=== PATIENT | female | born 1935 | race Caucasian/White ===

== ENCOUNTER 2020-10-28 12:21 | Outpatient (REF) | payer MEDICARE, SELFPAY ==
[2020-10-28 13:39] LABS: B Type Natriuretic Peptide 18 pg/mL (<100)
[2020-10-28 13:43] LABS: Alanine Aminotransferase 16 U/L (0-31); Albumin Level 4.1 g/dL (3.5-5.0); Alkaline Phosphatase 123 U/L (39-117); Anion Gap 13 (12-20); Aspartate Amino Transferase 36 U/L (5-31); Bilirubin Total 0.8 mg/dL (0.0-1.0); Blood Urea Nitrogen 17 mg/dL (9-16); Calcium 9.1 mg/dL (8.4-10.2); Carbon Dioxide 26 mmol/L (22-29); Chloride 104 mmol/L (96-108); Cholesterol 178 mg/dL; Estimated Glomerular Filt Rate 58; Glucose Random 155 mg/dL (60-115); HDL Cholesterol 65 mg/dL; LDL Cholesterol Calculated 94 mg/dl; Potassium 4.7 mmol/l (3.3-5.1); Sodium 138 mmol/L (135-145); Total Protein 7.7 g/dL (6.5-8.0); Triglycerides 99 mg/dL
== END 2020-10-28 12:22 | disposition home or self-care (01) ==
LOC: HO.LAB 12:21
PROVIDERS: PCP Internal Medicine; Visit Provider Internal Medicine
DX: I50.9 Heart failure, unspecified (principal); E11.9 Type 2 diabetes mellitus without complications
CPT/HCPCS: 80053; 80061; 83880

== ENCOUNTER → 2021-03-17 13:04 | Outpatient (BNVA) | payer MEDICARE, SELFPAY | PROVIDERS: PCP Internal Medicine; Visit Provider Internal Medicine | DX: I10 Essential (primary) hypertension (principal); R60.0 Localized edema; E11.8 Type 2 diabetes mellitus with unspecified complications; Z87.891 Personal history of nicotine dependence; Z79.899 Other long term (current) drug therapy | CPT/HCPCS: 93005; 99212 ==

== ENCOUNTER 2021-06-29 09:44 | Outpatient (REF) | payer MEDICARE, SELFPAY ==
[2021-06-29 13:44] LABS: Alanine Aminotransferase 14 U/L (0-31); Albumin Level 4.2 g/dL (3.5-5.0); Alkaline Phosphatase 132 U/L (39-117); Anion Gap 16 (12-20); Aspartate Amino Transferase 28 U/L (5-31); Bilirubin Total 0.9 mg/dL (0.0-1.0); Blood Urea Nitrogen 15 mg/dL (9-16); Calcium 9.3 mg/dL (8.4-10.2); Carbon Dioxide 24 mmol/L (22-29); Chloride 108 mmol/L (96-108); Cholesterol 183 mg/dL; Estimated Glomerular Filt Rate > 60; Glucose Fasting 122 mg/dL (60-99); HDL Cholesterol 64 mg/dL; LDL Cholesterol Calculated 99 mg/dl; Potassium 4.4 mmol/L (3.3-5.1); Sodium 144 mmol/L (135-145); Total Protein 7.4 g/dL (6.5-8.0); Triglycerides 104 mg/dL
== END 2021-06-29 09:45 | disposition home or self-care (01) ==
LOC: HO.LAB 09:44
PROVIDERS: PCP Internal Medicine; Visit Provider Internal Medicine
DX: E11.9 Type 2 diabetes mellitus without complications (principal); E78.5 Hyperlipidemia, unspecified
CPT/HCPCS: 36415; 80053; 80061

== ENCOUNTER → 2021-09-29 12:58 | Outpatient (BNVA) | payer MEDICARE, SELFPAY | PROVIDERS: PCP Internal Medicine; Referring Provider Internal Medicine; Visit Provider Internal Medicine | DX: I10 Essential (primary) hypertension (principal); R60.0 Localized edema; E11.8 Type 2 diabetes mellitus with unspecified complications | CPT/HCPCS: 99212 ==

== ENCOUNTER 2022-03-26 12:28 | Outpatient (REF) | payer OTHER, SELFPAY ==
[2022-03-26 13:27] LABS: Alanine Aminotransferase 15 U/L (0-31); Alkaline Phosphatase 165 U/L (39-117); Anion Gap 13 (12-20); Aspartate Amino Transferase 29 U/L (5-31); Bilirubin Total 1.2 mg/dL (0.0-1.0); Blood Urea Nitrogen 12 mg/dL (9-16); Calcium 10.1 mg/dL (8.4-10.2); Carbon Dioxide 26 mmol/L (22-29); Chloride 105 mmol/L (96-108); Cholesterol 183 mg/dL; Estimated Glomerular Filt Rate > 60; Glucose Fasting 144 mg/dL (60-99); HDL Cholesterol 64 mg/dL; LDL Cholesterol Calculated 103 mg/dl; Potassium 5.3 mmol/L (3.3-5.1); Sodium 139 mmol/L (135-145); Total Protein 7.5 g/dL (6.5-8.0); Triglycerides 80 mg/dL
== END 2022-03-26 12:29 | disposition home or self-care (01) ==
LOC: HO.LAB 12:28
PROVIDERS: PCP Internal Medicine; Visit Provider Internal Medicine
DX: E11.8 Type 2 diabetes mellitus with unspecified complications (principal); E78.5 Hyperlipidemia, unspecified
CPT/HCPCS: 36415; 80053; 80061

== ENCOUNTER 2022-03-29 14:56 | Outpatient (REF) | payer OTHER, SELFPAY ==
[2022-03-29 15:55] LABS: Creatinine Urine 19.95 mg/dL; Microalbumin Urine < 5.0 mg/L
== END 2022-03-29 14:57 | disposition home or self-care (01) ==
LOC: HO.LNP 14:56
PROVIDERS: Visit Provider Internal Medicine
DX: E11.8 Type 2 diabetes mellitus with unspecified complications (principal)
CPT/HCPCS: 82043

== ENCOUNTER → 2022-05-19 14:42 | Outpatient (BNVA) | payer OTHER, SELFPAY | PROVIDERS: PCP Internal Medicine; Referring Provider Internal Medicine; Visit Provider Internal Medicine | DX: I10 Essential (primary) hypertension (principal); E87.5 Hyperkalemia; E11.8 Type 2 diabetes mellitus with unspecified complications; R60.0 Localized edema; Z79.84 Long term (current) use of oral hypoglycemic drugs; Z79.899 Other long term (current) drug therapy | CPT/HCPCS: 93005; 99212 ==

== ENCOUNTER 2022-07-22 14:00 | Outpatient (RCR) | payer OTHER, SELFPAY ==
--- NOTE | 2022-06-24 17:31 | MHC.PT.EP ---
[facility] [place] Office [place] Office [place] Office [address] [phone] F: [phone] F: [phone] F: [phone] F: [phone] Physical Therapy Plan of Care Date of Evaluation: Date of Surgery: N/A Diagnosis: left knee pain (RC) Assessment: pt is a 87 y/o female presenting to physical therapy w/ referral for left knee pain. Impairments include pain, decreased range of motion, decreased strength, impaired functional mobility, impaired postural awareness. pt is a fair candidate for skilled PT due to age, potential remediation of impairments, typical disease/condition progression and prognosis, comorbidities, and motivation. pt would benefit from tailored strengthening and stretching exercise program, functional training, postural re-training, neuromuscular re-education, modalities as needed for pain, equipment safety demonstration. Frequency and Duration: The patient will be seen 1x/wk for 5 wks Short Term Goals: pt will be I w/ HEP to promote self-management of condition. pt will improve L knee extension by 5 degrees to promote improved heel strike at IC for ambulation Halfway Goals: pt will perform sit to stand transfer on first attempt w/ minimal UE assist. pt will ambulate 3 x 60' to promote return to household ambulation. Treatment Plan: Modalities to reduce pain, spasms and effusion. Manual therapy to restore motion and function. Therapeutic exercise to improve strength and flexibility. Neuromuscular re-education for posture and balance. Therapeutic activities to return to functional activities of daily living. Electronically signed by: Tracey Dykes PT, DPT Please sign and return to therapist. Thank you for your referral.
--- NOTE | 2022-08-09 14:50 | MHC.PT.DC ---
[facility] [place] Office [place] Office [place] Office [address] Sruthi Hopper [address] [phone] F: [phone] F: [phone] F: [phone] F: [phone] Physical Therapy Discharge Report Diagnosis: left knee pain (RC) Date of Surgery: N/A Date of Evaluation: 06/24/22 Date of Discharge: 08/09/22 Treatments to Date: 4 Cancellations to Date: 2 No Shows to Date: 0 Discharge Status: Recommend MD Follow-up Discharge Summary: The patient overall had fair-poor tolerance of physical therapy intervention. Her knee arthritis is advanced and not likely to improve with non-operative management. I cannot recommend further PT intervention for this patient at this time. She is discharged from this physical therapy plan of care with recommendation to follow-up with a provider and discuss alternative pain management options. Electronically signed by: Tracey Dykes PT, DPT Please sign and return to therapist. Thank you for your referral.
== END 2022-08-09 14:50 | disposition home or self-care (01) ==
LOC: HO.PT 14:00
PROVIDERS: PCP Internal Medicine; Visit Provider Internal Medicine
DX: M25.562 Pain in left knee (principal)
CPT/HCPCS: 97110; 97163

== ENCOUNTER 2022-08-17 11:52 | Outpatient (REF) | payer OTHER, SELFPAY ==
[2022-08-17 13:06] LABS: Alanine Aminotransferase 17 U/L (0-31); Albumin Level 4.2 g/dL (3.5-5.0); Alkaline Phosphatase 133 U/L (39-117); Anion Gap 14 (12-20); Aspartate Amino Transferase 27 U/L (5-31); Bilirubin Total 1.1 mg/dL (0.0-1.0); Blood Urea Nitrogen 16 mg/dL (9-16); Calcium 9.6 mg/dL (8.4-10.2); Carbon Dioxide 25 mmol/L (22-29); Chloride 104 mmol/L (96-108); Cholesterol 194 mg/dL; Estimated Glomerular Filt Rate > 60; Glucose Fasting 134 mg/dL (60-99); HDL Cholesterol 68 mg/dL; LDL Cholesterol Calculated 108 mg/dl; Sodium 138 mmol/L (135-145); Total Protein 7.1 g/dL (6.5-8.0); Triglycerides 92 mg/dL
== END 2022-08-17 11:53 | disposition home or self-care (01) ==
LOC: HO.LAB 11:52
PROVIDERS: PCP Internal Medicine; Visit Provider Internal Medicine
DX: E78.5 Hyperlipidemia, unspecified (principal); E87.5 Hyperkalemia
CPT/HCPCS: 36415; 80053; 80061

== ENCOUNTER 2022-08-19 16:46 | Outpatient (REF) | payer OTHER, SELFPAY ==
[2022-08-19 17:44] LABS: Creatinine Urine 39.56 mg/dL; Microalbumin Urine < 5.0 mg/L
== END 2022-08-19 16:47 | disposition home or self-care (01) ==
LOC: HO.LNP 16:46
PROVIDERS: Visit Provider Internal Medicine
DX: E11.9 Type 2 diabetes mellitus without complications (principal)
CPT/HCPCS: 82043

== ENCOUNTER → 2022-12-02 15:31 | Outpatient (BNVA) | payer OTHER, SELFPAY | PROVIDERS: PCP Internal Medicine; Referring Provider Internal Medicine; Visit Provider Internal Medicine | DX: I10 Essential (primary) hypertension (principal); E87.5 Hyperkalemia; R60.0 Localized edema | CPT/HCPCS: 99212 ==

== ENCOUNTER 2023-03-03 15:10 | Outpatient (REF) | payer OTHER, SELFPAY ==
--- NOTE | ~2023-03-03 | XR_ITS ---
EXAMINATION: XR ABDOMEN KUB CLINICAL INDICATION: Dorsalgia COMPARISON: None available. TECHNIQUE: AP view of the abdomen. FINDINGS: The bowel gas pattern is normal with no evidence of ileus or obstruction. No unusual soft tissue calcifications are noted. Degenerative changes of the spine and bilateral hips are noted. XR/XR KUB IMPRESSION: Nonobstructive bowel gas pattern.
--- NOTE | ~2023-03-03 | XR_ITS ---
EXAMINATION: XR lumbar spine 2-3V CLINICAL INFORMATION: Reason for Exam M54.50 - Low back pain, unspecified COMPARISON: Lumbar spine radiographs 07/21/2016 TECHNIQUE: 3 views of the lumbar spine FINDINGS: 5 nonrib-bearing lumbar-type vertebral bodies. Compression deformity of the L2 vertebral body with approximately 30% loss of vertebral body height. Anterolisthesis of L4 on L5. Left word scoliosis of the lumbar spine. Moderate multilevel degenerative disc disease with loss of disc space height, facet arthropathy and disc osteophyte complexes. Atherosclerotic calcifications of the abdominal aorta. XR/XR lumbar spine 2-3V IMPRESSION: * Age-indeterminate compression deformity of the L2 vertebral body. * Moderate spondylosis of the lumbar spine, as above detailed.
== END 2023-03-03 15:11 | disposition home or self-care (01) ==
LOC: HO.XRAY 15:10
PROVIDERS: PCP Internal Medicine; Visit Provider Internal Medicine
DX: M54.50 Low back pain, unspecified (principal)
CPT/HCPCS: 72100; 74018

== ENCOUNTER 2023-03-17 12:06 | Outpatient (REF) | payer OTHER, SELFPAY ==
--- NOTE | 2023-03-17 09:00 | EMG_ITS ---
Bilateral median and ulnar motor and sensory studies were performed. Bilateral radial sensory studies were performed and paraspinal muscles were tested with a needle. IMPRESSION: 1. [id number] bilateral median neuropathy across carpal tunnel. 2. Mild bilateral ulnar neuropathy across cubital tunnel. MD TOSHIA Soliz/RASHMI / [id number]
== END 2023-03-17 12:07 | disposition home or self-care (01) ==
LOC: HO.NEURO 12:06
PROVIDERS: PCP Internal Medicine; Visit Provider Internal Medicine
DX: R20.0 Anesthesia of skin (principal)
CPT/HCPCS: 95886; 95911

== ENCOUNTER 2023-03-25 10:29 | Outpatient (REF) | payer OTHER, SELFPAY ==
[2023-03-25 12:04] LABS: Alanine Aminotransferase 18 U/L (0-31); Albumin Level 4.3 g/dL (3.5-5.0); Alkaline Phosphatase 146 U/L (39-117); Anion Gap 15 (12-20); Aspartate Amino Transferase 31 U/L (5-31); Bilirubin Total 1.6 mg/dL (0.0-1.0); Blood Urea Nitrogen 16 mg/dL (9-16); Calcium 9.9 mg/dL (8.4-10.2); Carbon Dioxide 26 mmol/L (22-29); Chloride 105 mmol/L (96-108); Cholesterol 204 mg/dL; Estimated Glomerular Filt Rate > 60; Glucose Fasting 137 mg/dL (60-99); HDL Cholesterol 87 mg/dL; LDL Cholesterol Calculated 106 mg/dl; Potassium 4.5 mmol/L (3.3-5.1); Sodium 141 mmol/L (135-145); Total Protein 7.4 g/dL (6.5-8.0); Triglycerides 59 mg/dL
== END 2023-03-25 10:30 | disposition home or self-care (01) ==
LOC: HO.LAB 10:29
PROVIDERS: PCP Internal Medicine; Visit Provider Internal Medicine
DX: E78.5 Hyperlipidemia, unspecified (principal); E11.9 Type 2 diabetes mellitus without complications
CPT/HCPCS: 36415; 80053; 80061